=== PATIENT | female | born 1985 | race African-American/Black ===

== ENCOUNTER 2017-03-26 21:16 | Emergency (ER) | payer OTHER ==
[~2017-03-26] VITALS: Ht 172.7 cm; Wt 104.3 kg
[2017-03-26 21:30] VITALS: BP 122/79
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
== END 2017-03-26 22:50 | disposition home or self-care (01) ==
LOC: ER 21:16
DX: S06.0X0A Concussion without loss of consciousness, initial encounter (principal); S39.012A Strain of muscle, fascia and tendon of lower back, initial encounter; S50.11XA Contusion of right forearm, initial encounter; M54.2 Cervicalgia; F17.210 Nicotine dependence, cigarettes, uncomplicated; V49.88XA Car occupant (driver) (passenger) injured in other specified transport accidents, initial encounter; Y93.89 Activity, other specified; Y99.8 Other external cause status; Y92.488 Other paved roadways as the place of occurrence of the external cause
CPT/HCPCS: 99281

== ENCOUNTER 2017-05-25 14:49 | Emergency (ER) | payer OTHER ==
[~2017-05-25] VITALS: Ht 165.1 cm; Wt 72.6 kg
[2017-05-25 14:49] VITALS: BP 127/71
[2017-05-25] MEDS ORDERED: OSEL75CA PO (15:02)
[2017-05-25] MEDS ORDERED: HYDR115S2 PO (15:02)
--- NOTE | 2017-05-25 15:03 | PHYS DOC ---
Past History Past Medical History: No Pertinent History Past Surgical History: Tubal ligation Smoking: Cigarettes Alcohol Use: None Drug Use: None Adult General Chief Complaint Chief Complaint: COUGH HPI HPI 31 years old female patient complaining of nonproductive cough and nasal congestion and body ache since yesterday after had exposure to influenza A at home. Patient denies vomiting, diarrhea, urinary symptoms, . Patient presented with her son to emergency room who had positive flu A with the same symptom. Review of Systems Review of Systems Constitutional: Denies fever or chills [] Eyes: Denies change in visual acuity, redness, or eye pain [] HENT: Reports nasal congestion and sore throat Respiratory: Denies shortness of breath , reports cough[] Cardiovascular: No additional information not addressed in HPI [] GI: Denies abdominal pain, nausea, vomiting, bloody stools or diarrhea [] : Denies dysuria or hematuria [] Musculoskeletal: Denies back pain or joint pain [] Integument: Denies rash or skin lesions [] Neurologic: Denies headache, focal weakness or sensory changes [] Endocrine: Denies polyuria or polydipsia [] All other systems were reviewed and found to be within normal limits, except as documented in this note. Allergies Allergies Allergies Coded Allergies Type Severity Reaction Last Updated Verified No Known Drug Allergies 01/04/16 No Physical Exam Physical Exam Constitutional: Well developed, well nourished, mild distress, non-toxic appearance. [] HENT: Normocephalic, atraumatic, bilateral external ears normal, oropharynx moist, pharyngeal erythema, no oral exudates, nose normal. [] Eyes: PERRLA, EOMI, conjunctiva normal, no discharge. [] Neck: Normal range of motion, no tenderness, supple, no stridor. [] Cardiovascular:Heart rate regular rhythm, no murmur [] Lungs & Thorax: Bilateral breath sounds clear to auscultation [] Abdomen: Bowel sounds normal, soft, no tenderness, no masses, no pulsatile masses. [] Skin: Warm, dry, no erythema, no rash. [] Back: No tenderness, no CVA tenderness. [] Extremities: No tenderness, no cyanosis, no clubbing, ROM intact, no edema. [] Neurologic: Alert and oriented X 3, normal motor function, normal sensory function, no focal deficits noted. [] Psychologic: Affect normal, judgement normal, mood normal. [] EKG EKG [] Radiology/Procedures Radiology/Procedures [] Course & Med Decision Making Course & Med Decision Making Evaluation of patient in ER showed 31-year-old female patient with flulike symptoms for the last 2 days. Patient presented with her son who have positive flu A in his ER visit today and doesn't want to have test for influenza. Plan to discharge patient home with diagnoses of flulike symptoms and treatment Tamiflu and Tussionex. I've spoken with the patient and/or caregivers. I've explained the patient's condition, diagnosis and treatment plan based on information available to me at this time. I've answered the patient's and/or caregivers questions and addressed any concerns. The patient and/or caregivers have a good understanding the patient's diagnosis, condition and treatment plan as can be expected at this point. Vital signs have been stabilized. The patient's condition is stable for discharge from the emergency department. The patient will pursue further outpatient evaluation with her primary care provider or other designated consulting physician as outlined in the discharge instructions. Patient and/or caregivers are agreeable to this plan of care and follow-up instructions have been explained in detail. The patient and/or caregivers have received these instructions in written format and expressed understanding of these discharge instructions. The patient and her caregivers are aware that if any significant change in condition or worsening of symptoms should prompt him to immediately return to this of the closest emergency department. If an emergent department is not readily available I would encourage him to call 911. Rosa Disclaimer Dragon Disclaimer This electronic medical record was generated, in whole or in part, using a voice recognition dictation system. Departure Departure: Impression: Primary Impression: Flu-like symptoms Additional Impressions: Tobacco abuse counseling Tobacco abuse Disposition: HOME, SELF-CARE (At 1500) Condition: STABLE Referrals: PCP,NO (PCP) Patient Instructions: Influenza A (H1N1), Smoking Cessation, Tips For Success Additional Instructions: Drink plenty of liquids Follow-up with your primary care physician in 3-5 days Return to ER if not getting better Quit smoking Scripts Hydrocodone/Chlorphen P-Stirex (Tussionex Pennkinetic Susp) 115 Ml Niki.er.12h 5 ML PO BID, #120 ML Prov: JONY ALFARO MD 05/25/17 Oseltamivir Phosphate (TAMIFLU) 75 Mg Capsule 1 CAP PO BID, #10 CAP Prov: JONY ALFARO MD 05/25/17 Problem Qualifiers JONY ALFARO MD May 25, 2017 15:03
== END 2017-05-25 15:10 | disposition home or self-care (01) ==
LOC: ER 14:49
DX: R05 Cough (principal); R09.81 Nasal congestion; M79.1 Myalgia; F17.210 Nicotine dependence, cigarettes, uncomplicated; Z71.6 Tobacco abuse counseling
CPT/HCPCS: 99283

== ENCOUNTER 2018-04-05 01:05 | Emergency (ER) | payer OTHER ==
[~2018-04-05] VITALS: Ht 172.7 cm; Wt 99.8 kg
[~2018-04-05 01:05] MED LIST: HYDR115S2 PO; OSEL75CA PO
--- NOTE | 2018-04-05 01:08 | ED.ADGEN ---
Past History Past Medical History: No Pertinent History, Migraines, Sinusitis Past Surgical History: Tubal ligation Smoking: Cigarettes Alcohol Use: None Drug Use: Marijuana Adult General Chief Complaint Chief Complaint ".. I brought my daughter in.. to get checked ... so I thought I would get checked too.. I got bad sinus complaints.. headache... sore throat.. 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 and I need to be able to go to work.. Dr. Fletcher usually give me a antibiotic for this... " HPI HPI Patient is a 32 year old female who presents with above hx and complains of nausea, migraine headache, pharyngitis, sinus congestion and malaise. Pt. patient has had episodes of sinusitis in the past. Patient denies any history of trauma, recent travel or specific ill contacts other than her daughter is sick with abdomen complaints, but does work with the public. Patient does not believe in flu vaccinations. Patient has been sick for last 4 days. Review of Systems Review of Systems Constitutional: Complaints of fever] Eyes: Denies change in visual acuity, redness, or eye pain [] HENT: Complaints of nasal congestion and sore throat [] Respiratory: Denies cough or shortness of breath [] Cardiovascular: No additional information not addressed in HPI [] GI: Denies abdominal pain, nausea, vomiting, bloody stools or diarrhea [] : Denies dysuria or hematuria [] Musculoskeletal: Denies back pain or joint pain [] Integument: Denies rash or skin lesions [] Neurologic: Denies headache, focal weakness or sensory changes [] Endocrine: Denies polyuria or polydipsia [] All other systems were reviewed and found to be within normal limits, except as documented in this note. Family History Family History Daughter has abdomen complaints Current Medications Current Medications Current Medications Medications (Trade) Dose Ordered Sig/Avril Start Time Stop Time Status Last Admin Dose Admin Diphenhydramine HCl (Benadryl) 25 mg STK-MED ONCE 04/05/18 02:38 04/05/18 03:42 DC Ketorolac Tromethamine (Toradol Im) 60 mg STK-MED ONCE 04/05/18 02:38 04/05/18 03:42 DC Lactated Ringer's 1,000 ml @ 1,000 mls/hr Q1H 04/05/18 01:30 04/05/18 02:29 DC Prochlorperazine Edisylate (Compazine) 10 mg 1X ONCE 04/05/18 02:45 04/05/18 03:42 DC 04/05/18 02:48 10 MG Valproic Acid 500 mg/Sodium Chloride 55 ml @ 55 mls/hr 1X STAT 04/05/18 02:00 04/05/18 02:59 DC Allergies Allergies Allergies Coded Allergies Type Severity Reaction Last Updated Verified No Known Drug Allergies 01/04/16 No Physical Exam Physical Exam Constitutional: Well developed, well nourished, no acute distress, non-toxic appearance. [] HENT: Normocephalic, atraumatic, bilateral external ear canals has mild excoriations , oropharynx moist, mild injection of pharynx. No oral exudates, nose mild turbinate congestion and clear rhinorrhea. Frontal sinus tenderness. Tongue stud. Eyes: PERRLA, EOMI, conjunctiva normal, no discharge. [] Neck: Normal range of motion, no tenderness, supple, no stridor. [] Cardiovascular:Heart rate regular rhythm, no murmur [] Lungs & Thorax: Bilateral breath sounds equal at apexes with scattered wheezes auscultation [] Abdomen: Bowel sounds normal, soft, no tenderness, no masses, no pulsatile masses. [] Old scar. Skin: Warm, dry, no erythema, no rash. [] Back: No tenderness, no CVA tenderness. [] Extremities: No tenderness, no cyanosis, no clubbing, ROM intact, no edema. [] Neurologic: Alert and oriented X 3, normal motor function, normal sensory function, no focal deficits noted. [] Psychologic: Affect anxious, judgement normal, mood normal. [] Current Patient Data Vital Signs Vital Signs Date Time Temp Pulse Resp B/P (MAP) Pulse Ox O2 Delivery O2 Flow Rate FiO2 04/05/18 01:19 98.3 88 20 100 Room Air Lab Results Laboratory Tests Test 04/05/18 01:57 04/05/18 02:20 04/05/18 02:27 Influenza Type A (Rapid) Negative (NEGATIVE) Influenza Type B (Rapid) Negative (NEGATIVE) Group A Streptococcus Rapid Negative (NEGATIVE) Urine Collection Type Unknown Urine Color Yellow Urine Clarity Cloudy Urine pH 7.0 Urine Specific [place] 1.020 Urine Protein Neg (NEG-TRACE) Urine Glucose (UA) Neg mg/dL (NEG) Urine Ketones (Stick) Neg mg/dL (NEG) Urine Blood Neg (NEG) Urine Nitrite Neg (NEG) Urine Bilirubin Neg (NEG) Urine Urobilinogen Dipstick 0.2 mg/dL (0.2 mg/dL) Urine Leukocyte Esterase Neg (NEG) Urine RBC 0 /HPF (0-2) Urine WBC Occ /HPF (0-4) Urine Squamous Epithelial Cells Occ /LPF Urine Amorphous Sediment Present /HPF Urine Bacteria 0 /HPF (0-FEW) Urine Opiates Screen Neg (NEG) Urine Methadone Screen Neg (NEG) Urine Barbiturates Neg (NEG) Urine Phencyclidine Screen Neg (NEG) Urine Amphetamine/Methamphetamine Neg (NEG) Urine Benzodiazepines Screen Neg (NEG) Urine Cocaine Screen Neg (NEG) Urine Cannabinoids Screen Pos (NEG) Urine Ethyl Alcohol Neg (NEG) POC Urine HCG, Qualitative hcg negative (Negative) EKG EKG [] Radiology/Procedures Radiology/Procedures [] Course & Med Decision Making Course & Med Decision Making Pertinent Labs and Imaging studies reviewed. (See chart for details) Pt. declines further work up at this time. No CT or spinal tap. No labs . Does agree to flu swab and strept screen. Pt. unhappy with multiple questions as to symptoms and medical hx. Pt. to take benadryl 25- 50 mg up to 4 x day for congestion and drainage. Use Afrin nasal spray and Flonase to each nasal area twice a day. Use normal saline nasal rinses. Tylenol and Ibuprofen of discomfort. Take Zofran for nausea. Must follow up with Dr. Fletcher. Consider ENT eval. if having chronic sinus complaints. Return if any concerns. Avoid smoking. Advised pt. would start on antibiotic at this time. Suspect Viral presentation. [] Final Impression Final Impression 1. Sinusitis complaints 2. Pharyngitis[] 3. Viral Syndrome Dragon Disclaimer Dragon Disclaimer This electronic medical record was generated, in whole or in part, using a voice recognition dictation system. Dragon Disclaimer This chart was dictated in whole or in part using Voice Recognition software in a busy, high-work load, and often noisy Emergency Department environment. It may contain unintended and wholly unrecognized errors or omissions. Discharge Summary Visit Information Final Diagnosis Problems Medical Problems: (1) Sinusitis Status: Acute (2) Viral syndrome Status: Acute Brief Hospital Course Allergies Allergies Coded Allergies Type Severity Reaction Last Updated Verified No Known Drug Allergies 01/04/16 No Vital Signs Vital Signs Date Time Temp Pulse Resp B/P (MAP) Pulse Ox O2 Delivery O2 Flow Rate FiO2 04/05/18 01:19 98.3 88 20 100 Room Air Lab Results Laboratory Tests Test 04/05/18 01:57 04/05/18 02:20 04/05/18 02:27 Influenza Type A (Rapid) Negative (NEGATIVE) Influenza Type B (Rapid) Negative (NEGATIVE) Group A Streptococcus Rapid Negative (NEGATIVE) Urine Collection Type Unknown Urine Color Yellow Urine Clarity Cloudy Urine pH 7.0 Urine Specific Aiken 1.020 Urine Protein Neg (NEG-TRACE) Urine Glucose (UA) Neg mg/dL (NEG) Urine Ketones (Stick) Neg mg/dL (NEG) Urine Blood Neg (NEG) Urine Nitrite Neg (NEG) Urine Bilirubin Neg (NEG) Urine Urobilinogen Dipstick 0.2 mg/dL (0.2 mg/dL) Urine Leukocyte Esterase Neg (NEG) Urine RBC 0 /HPF (0-2) Urine WBC Occ /HPF (0-4) Urine Squamous Epithelial Cells Occ /LPF Urine Amorphous Sediment Present /HPF Urine Bacteria 0 /HPF (0-FEW) Urine Opiates Screen Neg (NEG) Urine Methadone Screen Neg (NEG) Urine Barbiturates Neg (NEG) Urine Phencyclidine Screen Neg (NEG) Urine Amphetamine/Methamphetamine Neg (NEG) Urine Benzodiazepines Screen Neg (NEG) Urine Cocaine Screen Neg (NEG) Urine Cannabinoids Screen Pos (NEG) Urine Ethyl Alcohol Neg (NEG) Bedside Urine HCG, Qualitative hcg negative (Negative) Brief Hospital Course Ms. Owens is a 32 old female who presented with nasal congestion, sore throat and headache. x 4 days. Suspect viral syndrome. Recommend conservative treatment at this time and follow up with primary. Return if any concerns. Discharge Information Condition at Discharge: Improved, Stable Disposition/Orders: D/C to Home Dischare Medications Current Medications Lactated Ringer's 1,000 ml @ 1,000 mls/hr Q1H IV ; Start 04/05/18 at 01:30; Stop 04/05/18 at 02:29; Status DC Valproic Acid 500 mg/Sodium Chloride 55 ml @ 55 mls/hr 1X STAT IV ; Start at 02:00; Stop 04/05/18 at 02:59; Status DC Diphenhydramine HCl (Benadryl) 50 mg 1X ONCE IV ; Start 04/05/18 at 01:30; Stop 04/05/18 at 02:10; Status DC Prochlorperazine Edisylate (Compazine) 10 mg 1X ONCE IV ; Start 04/05/18 at 01: 30; Stop 04/05/18 at 02:10; Status DC Ketorolac Tromethamine (Toradol Im) 60 mg 1X ONCE IM Last administered on at 02:47; Admin Dose 60 MG; Start 04/05/18 at 02:45; Stop 04/05/18 at 03:42; Status DC Diphenhydramine HCl (Benadryl) 50 mg 1X ONCE PO Last administered on 04/05/18at 02:46; Admin Dose 50 MG; Start 04/05/18 at 02:45; Stop 04/05/18 at 03:42; Status DC Prochlorperazine Edisylate (Compazine) 10 mg 1X ONCE IM Last administered on at 02:48; Admin Dose 10 MG; Start 04/05/18 at 02:45; Stop 04/05/18 at 03:42; Status DC Ketorolac Tromethamine (Toradol Im) 60 mg STK-MED ONCE IM ; Start 04/05/18 at 02: 38; Stop 04/05/18 at 03:42; Status DC Diphenhydramine HCl (Benadryl) 25 mg STK-MED ONCE PO ; Start 04/05/18 at 02:38; Stop 04/05/18 at 03:42; Status DC Active Scripts Active Flonase Allergy Relief (Fluticasone Propionate) 9.9 Ml [place].susp 2 Sprays NS BID 30 Days Zofran (Ondansetron Hcl) 8 Mg Tablet 8 Mg PO QIDPRN PRN Tussionex Pennkinetic Susp (Hydrocodone/Chlorphen P-Stirex) 115 Ml Niki.er.12h 5 Ml PO BID Tamiflu (Oseltamivir Phosphate) 75 Mg Capsule 1 Cap PO BID JANET ADAM MD Apr 05, 2018 01:08
[2018-04-05 01:19] VITALS: BP 130/79
[2018-04-05] MEDS ORDERED: diphenhydrAMINE 50 MG/ML VIAL IV ONE (01:30)
[2018-04-05] MEDS ORDERED: IV RINGERS SOLUTION,LACTATED 1,000 ML IV SCH (01:30)
[2018-04-05] MEDS ORDERED: PROCHLORPERAZINE 10 MG/2 ML VIAL. IV ONE (01:30)
[2018-04-05] MEDS ORDERED: VALPROATE SODIUM 500 MG in IV NORMAL SALINE 50ML 50 ML IV STA (02:00)
[2018-04-05] MEDS ORDERED: diphenhydrAMINE HCL 25 MG CAPSULE PO ONE ×2 (02:38→02:45)
[2018-04-05] MEDS ORDERED: KETOROLAC 60 MG/2 ML VIAL. IM ONE ×2 (02:38→02:45)
[2018-04-05 02:40] LABS: INFLUENZA A PATIENT NEGATIVE (NEGATIVE); INFLUENZA B PATIENT NEGATIVE (NEGATIVE)
[2018-04-05] MEDS ORDERED: FLUT9.9S NS (02:41)
[2018-04-05] MEDS ORDERED: ONDA8TAB9 PO (02:41)
[2018-04-05] MEDS ORDERED: PROCHLORPERAZINE 10 MG/2 ML VIAL. IM ONE (02:45)
[2018-04-05 02:52] LABS: BILIRUBIN,URINE NEG (NEG); CLARITY,URINE CLOUDY; COLOR,URINE YELLOW; GLUCOSE,URINE NEG (NEG)
[2018-04-05 02:53] LABS: AMORPHOUS SEDIMENT,UR PRESENT /HPF; BACTERIA,URINE 0 /HPF (0-FEW); NITRITE,URINE NEG (NEG); RBC,URINE 0 /HPF (0-2); SQUAMOUS EPITHELIAL CELL,UR OCC /LPF; UROBILINOGEN,URINE 0.2 mg/dL (0.2 mg/dL); WBC,URINE OCC /HPF (0-4)
[2018-04-05 02:54] LABS: AMPHETAMINE/METHAMPHETAMINE NEG (NEG); BARBITURATES NEG (NEG); BENZODIAZEPINES NEG (NEG); CANNABINOIDS POS (NEG); COCAINE NEG (NEG); METHADONE NEG (NEG); OPIATES NEG (NEG); PHENCYCLIDINE NEG (NEG)
== END 2018-04-05 03:38 | disposition home or self-care (01) ==
LOC: ER 01:05
DX: J32.9 Chronic sinusitis, unspecified (principal); J02.9 Acute pharyngitis, unspecified; B34.9 Viral infection, unspecified; G43.909 Migraine, unspecified, not intractable, without status migrainosus; F17.210 Nicotine dependence, cigarettes, uncomplicated
CPT/HCPCS: 36415; 80307; 81001; 81025; 87070; 87804; 87880; 96372; 99283; J0780; J1885; Q0163; 99284

== ENCOUNTER → 2020-06-19 | Outpatient (CLI) | payer OTHER ==
[~2020-06-19] MED LIST changes: +FLUT9.9S NS; +ONDA8TAB9 PO
[2020-06-19 15:12] LABS: BASO % 0 % (0-3); EOS # 0.1 x10^3/uL (0.0-0.7); EOS % 1 % (0-3); HEMATOCRIT 37.6 % (36.0-47.0); HEMOGLOBIN 12.5 g/dL (12.0-15.5); LYMPH # 2.8 x10^3/uL (1.0-4.8); LYMPH % 33 % (24-48); MEAN CORPUSCULAR HEMOGLOBIN 27 pg (25-35); MEAN CORPUSCULAR HGB CONC 33 g/dL (31-37); MEAN CORPUSCULAR VOLUME 81 fL (79-100); MONO # 0.7 x10^3/uL (0.0-1.1); MONO % 8 % (0-9); NEUT # 5.1 x10^3uL (1.8-7.7); NEUT % 58 % (31-73); PLATELET COUNT 348 x10^3/uL (140-400); RED BLOOD COUNT 4.65 x10^6/uL (3.50-5.40); RED CELL DISTRIBUTION WIDTH 15.5 % (11.5-14.5); WHITE BLOOD COUNT 8.7 x10^3/uL (4.0-11.0)
[2020-06-19 15:21] LABS: ALBUMIN 3.8 g/dL (3.4-5.0); CALCIUM 8.7 mg/dL (8.5-10.1); CREATININE 0.8 mg/dL (0.6-1.0); TOTAL BILIRUBIN 0.5 mg/dL (0.2-1.0); TOTAL PROTEIN 7.8 g/dL (6.4-8.2)
[2020-06-20 14:32] LABS: FREE T4 0.76 ng/dL (0.76-1.46)
[2020-06-20 14:33] LABS: THYROID STIM HORMONE (TSH) 1.197 uIU/mL (0.358-3.740)
== END ==
LOC: LAB 14:13
PROVIDERS: ATTEND Nurse Practitioner Family
DX: Z79.899 Other long term (current) drug therapy (principal)
CPT/HCPCS: 36415; 80053; 80061; 83036; 84146; 84439; 84443; 84480; 85025